=== PATIENT | male | born 1950 | race Caucasian/White ===

== ENCOUNTER 2016-08-15 10:42 | Outpatient (CLI) | payer MEDICARE, OTHER | END 2016-08-15 10:43 | disposition home or self-care (01) | DX: E78.00 Pure hypercholesterolemia, unspecified (principal); E53.8 Deficiency of other specified B group vitamins; Z51.81 Encounter for therapeutic drug level monitoring; E11.9 Type 2 diabetes mellitus without complications; Z12.5 Encounter for screening for malignant neoplasm of prostate; R68.82 Decreased libido | CPT/HCPCS: 36415; 80053; 80061; 82607; 83036; 84403; G0103 ==

== ENCOUNTER 2016-10-10 12:30 | Outpatient (CLI) | payer MEDICARE, OTHER | END 2016-10-10 12:31 | disposition home or self-care (01) | DX: M51.16 Intervertebral disc disorders with radiculopathy, lumbar region (principal); M47.896 Other spondylosis, lumbar region ==

== ENCOUNTER 2016-11-20 06:51 | Outpatient (CLI) | payer MEDICARE, OTHER ==
[2016-11-20 13:26] LABS: ALBUMIN/GLOBULIN RATIO 1.3 (1.0-2.2); BILIRUBIN,TOTAL 1.1 mg/dL (0.2-1.0); BUN - BLOOD UREA NITROGEN 12 mg/dL (6-20); CALCIUM 9.3 mg/dL (8.5-10.3); CARBON DIOXIDE - CO2 27 mmol/L (21-32); CHLORIDE 101 mmol/L (101-111); CHOL/HDL RATIO 3.9 (<5.0); CHOLESTEROL 213 mg/dL; CREATININE 0.7 mg/dL (0.6-1.2); GFR - MDRD 112 (>89); GLUCOSE 132 mg/dL (70-100); HDL CHOLESTEROL 54 mg/dL; LDL/HDL RATIO 2.5 (<3.6); SODIUM 137 mmol/L (135-145); TOTAL PROTEIN 7.2 g/dL (6.7-8.2); TRIGLYCERIDES 110 mg/dL; VLDL CHOLESTEROL 22 mg/dL
[2016-11-20 13:49] LABS: HEMOGLOBIN A1C 0.77 g/dL
== END 2016-11-20 06:52 | disposition home or self-care (01) ==
LOC: LAB.WCP 06:51
PROVIDERS: ATTEND Physician Assistant Medical
DX: Z51.81 Encounter for therapeutic drug level monitoring (principal); E11.9 Type 2 diabetes mellitus without complications; E78.00 Pure hypercholesterolemia, unspecified
CPT/HCPCS: 36415; 80053; 80061; 83036; 84443

== ENCOUNTER 2017-05-03 11:09 | Outpatient (CLI) | payer MEDICARE, OTHER ==
[2017-05-03 13:38] LABS: ALBUMIN/GLOBULIN RATIO 1.5 (1.0-2.2); BILIRUBIN,TOTAL 1.1 mg/dL (0.2-1.0); BUN - BLOOD UREA NITROGEN 11 mg/dL (6-20); CALCIUM 9.1 mg/dL (8.5-10.3); CARBON DIOXIDE - CO2 26 mmol/L (21-32); CHLORIDE 103 mmol/L (101-111); CHOL/HDL RATIO 2.2 (<5.0); CHOLESTEROL 121 mg/dL; CREATININE 0.7 mg/dL (0.6-1.2); GFR - MDRD 112 (>89); GLUCOSE 154 mg/dL (70-100); HDL CHOLESTEROL 55 mg/dL; LDL/HDL RATIO 0.9 (<3.6); POTASSIUM 4.5 mmol/L (3.5-5.0); SODIUM 138 mmol/L (135-145); TRIGLYCERIDES 75 mg/dL; VLDL CHOLESTEROL 15 mg/dL
[2017-05-03 14:11] LABS: HEMOGLOBIN A1C 0.92 g/dL
== END 2017-05-03 11:10 | disposition home or self-care (01) ==
LOC: LAB.WCP 11:09
PROVIDERS: ATTEND Physician Assistant Medical
DX: Z51.81 Encounter for therapeutic drug level monitoring (principal); E11.9 Type 2 diabetes mellitus without complications; E78.00 Pure hypercholesterolemia, unspecified; E53.8 Deficiency of other specified B group vitamins
CPT/HCPCS: 36415; 80053; 80061; 82607; 83036

== ENCOUNTER 2017-07-16 09:50 | Outpatient (CLI) | payer MEDICARE, OTHER | END 2017-07-16 09:51 | disposition home or self-care (01) | LOC: LAB.WCP 09:50 | PROVIDERS: ATTEND Physician Assistant | DX: Z12.5 Encounter for screening for malignant neoplasm of prostate (principal); R68.82 Decreased libido | CPT/HCPCS: 36415; 81599; 84402; G0103; 84153 ==

== ENCOUNTER 2017-08-09 10:23 | Outpatient (CLI) | payer MEDICARE, OTHER ==
[2017-08-09 19:01] LABS: BASOPHILS % (AUTO) 0.3 %; EOSINOPHILS # (AUTO) 0.1 10^3/uL (0.0-0.7); LYMPHOCYTES # (AUTO) 0.9 10^3/uL (1.5-3.5); LYMPHOCYTES % (AUTO) 22.2 %; MEAN CORPUSCULAR HEMOGLOBIN 32.2 pg (27.0-31.0); MEAN CORPUSCULAR HGB CONC 34.3 g/dL (32.0-36.0); MEAN CORPUSCULAR VOLUME 93.8 fL (80.0-94.0); MEAN PLATELET VOLUME 9.8 fL (7.4-11.4); MONOCYTES # (AUTO) 0.3 10^3/uL (0.0-1.0); MONOCYTES % (AUTO) 7.1 %; NEUTROPHILS # (AUTO) 2.8 10^3/uL (1.5-6.6); NEUTROPHILS % (AUTO) 68.4 %; PLT - PLATELET COUNT 139 10^3/uL (130-450); RED BLOOD COUNT 4.35 10^6/uL (4.70-6.10); RED CELL DISTRIBUTION WIDTH 14.4 % (12.0-15.0); WHITE BLOOD COUNT 4.2 x10^3/uL (4.8-10.8)
[2017-08-09 19:24] LABS: ALBUMIN 3.9 g/dL (3.2-5.5); ALBUMIN/GLOBULIN RATIO 1.3 (1.0-2.2); ALKALINE PHOSPHATASE 47 IU/L (42-121); ALT ALANINE AMINOTRANSFERASE 25 IU/L (10-60); AST ASPARTATE AMINOTRANSFERASE 28 IU/L (10-42); BILIRUBIN,TOTAL 1.4 mg/dL (0.2-1.0); BUN - BLOOD UREA NITROGEN 14 mg/dL (6-20); CALCIUM 8.8 mg/dL (8.5-10.3); CARBON DIOXIDE - CO2 27 mmol/L (21-32); CHLORIDE 103 mmol/L (101-111); CHOLESTEROL 131 mg/dL; CREATININE 0.6 mg/dL (0.6-1.2); GFR - MDRD 134 (>89); GLUCOSE 125 mg/dL (70-100); HDL CHOLESTEROL 65 mg/dL; LDL CHOLESTEROL,CALCULATED 58 mg/dL; LDL/HDL RATIO 0.9 (<3.6); SODIUM 137 mmol/L (135-145); TOTAL PROTEIN 6.8 g/dL (6.7-8.2); VLDL CHOLESTEROL 8 mg/dL
[2017-08-09 19:35] LABS: HB2 TOTAL 15.7 g/dL; HEMOGLOBIN A1C 0.79 g/dL; HEMOGLOBIN A1C % 6.8 % (4.6-6.2)
== END 2017-08-09 10:24 | disposition home or self-care (01) ==
LOC: LAB.WCP 10:23
PROVIDERS: ATTEND Physician Assistant Medical
DX: E11.9 Type 2 diabetes mellitus without complications (principal); E53.8 Deficiency of other specified B group vitamins; E78.00 Pure hypercholesterolemia, unspecified; R68.82 Decreased libido; Z51.81 Encounter for therapeutic drug level monitoring; Z79.899 Other long term (current) drug therapy
CPT/HCPCS: 36415; 80053; 80061; 81599; 83036; 83721; 84402; 84403; 84443; 85025

== ENCOUNTER 2017-10-05 12:38 | Emergency (ER) | payer MEDICARE, OTHER ==
[2017-10-05 12:48] VITALS: BP 163/71
--- NOTE | 2017-10-05 14:21 | ED Physician Documentation ---
PD HPI ABD PAIN - Stated complaint Stated Complaint: LT SIDE PX - Chief complaint Chief Complaint: Abd Pain - History obtained from History obtained from: Patient, Family - History of Present Illness Timing - onset: How many weeks ago (5-6) Timing - duration: Weeks (5-6) Timing - details: Abrupt onset, Still present, Waxing and waning Quality: Sharp, Pain Location: LLQ Radiation: Left flank, Right flank Improved by: Laying still Worsened by: Moving, Position, Palpation Associated symptoms: Other (cough) Similar symptoms before: Diagnosis (diverticulitis) Recently seen: Clinic - Additional information Additional information: Has a cough for the past 2 months. He has had a sensation of something caught in his throat and he has not had choking. He has not had shortness of breath. He has had a hacking cough his states that this cough is persistent and significant and has not resolved. He has had cough previously is resolved in the usual 2-3 weeks. He has been on a Z-Fransisco which improved but did not resolve the cough. He is now concerned about a pain that he has had in his left lower abdomen this pain is worse with coughing it is worse with moving around and with palpation. He has not had fever he has not had diarrhea or constipation. He does have some pain in his flanks bilaterally. Review of Systems Constitutional: denies: Fever Eyes: denies: Decreased vision Ears: denies: Ear pain Nose: reports: Congestion. denies: Rhinorrhea / runny nose Throat: denies: Sore throat Cardiac: denies: Chest pain / pressure, Palpitations Respiratory: reports: Cough. denies: Dyspnea GI: denies: Abdominal Pain, Nausea, Vomiting : denies: Dysuria, Frequency Skin: denies: Rash Musculoskeletal: reports: Back pain. denies: Neck pain, Extremity pain Neurologic: denies: Generalized weakness, Focal weakness, Numbness PD PAST MEDICAL HISTORY - Past Medical History Past Medical History: Yes Cardiovascular: Deep vein thrombosis Respiratory: None Neuro: Peripheral neuropathy, Other Endocrine/Autoimmune: Type 2 diabetes GI: Diverticulitis : Kidney stones HEENT: None Psych: Depression Musculoskeletal: None Derm: None Other Past Medical History: DVT leading to saddle embo;ism 4 years ago - Past Surgical History Past Surgical History: Yes Ortho: Other - Present Medications Home Medications: Ambulatory Orders Medication Instructions Recorded Confirmed DULoxetine [Cymbalta] 1 cap PO DAILY 10/05/17 10/05/17 Glipizide 1 tab PO BID 10/05/17 10/05/17 Lisinopril 1 tab PO DAILY 10/05/17 10/05/17 Omeprazole [PriLOSEC] 1 cap PO DAILY 10/05/17 10/05/17 Tamsulosin [Flomax] 1 cap PO DAILY 10/05/17 10/05/17 metFORMIN [Glucophage] 1 tab PO TID 10/05/17 10/05/17 - Allergies Allergies/Adverse Reactions: Allergies Allergy/AdvReac Type Severity Reaction Status Date / Time hydromorphone [From Dilaudid] AdvReac Unknown Verified 10/05/17 12:48 - Social History Does the pt smoke?: No Smoking Status: Never smoker Does the pt drink ETOH?: Yes Does the pt have substance abuse?: No - Immunizations Immunizations are current?: Yes - POLST Patient has POLST: No PD ED PE NORMAL - Vitals Vital signs reviewed: Yes (hypertensive ) - General General: Alert and oriented X 3, No acute distress, Well developed/nourished - HEENT HEENT: Atraumatic, PERRL, EOMI, Ears normal, Moist mucous membranes, Pharynx benign, Dentition benign - Neck Neck: Supple, no meningeal sign - Cardiac Cardiac: RRR, No murmur - Respiratory Respiratory: No respiratory distress, Clear bilaterally - Abdomen Abdomen: Soft, No organomegaly, Other (mild tenderness to the left lower quadrant to one specific area. ) - Back Back: No CVA TTP, No spinal TTP, Other (There is some paraspinous muscle tenderness to the lumbar spine area over the L3 area. ) - Derm Derm: Normal color, Warm and dry, No rash - Extremities Extremities: No deformity, No edema - Neuro Neuro: Alert and oriented X 3, curator 2-12 intact, No motor deficit, No sensory deficit, Normal speech Eye Opening: Spontaneous Motor: Obeys Commands Verbal: Oriented GCS Score: 15 - Psych Psych: Normal mood, Normal affect Results - Vitals Vitals: Vital Signs - 24 hr 10/05/17 12:41 Temperature 36.4 C L Heart Rate 70 Respiratory 15 Rate Blood Pressure 163/71 H O2 Saturation 97 - Labs Labs: Laboratory Tests 10/05/17 10/05/1718 14:11 15:16 15:16 WBC 4.2 L RBC 4.10 L Hgb 13.0 L Hct 37.7 L MCV 91.9 MCH 31.8 H MCHC 34.6 RDW 14.0 Plt Count 123 L MPV 7.9 Neut # 3.1 Lymph # 0.6 L [place] # 0.4 Eos # 0.1 Baso # 0.0 Absolute Nucleated RBC 0.00 Nucleated RBC % 0.0 Sodium 137 Potassium 3.9 Chloride 102 Carbon Dioxide 27 Anion Gap 8.0 BUN 11 Creatinine 0.6 Estimated GFR (MDRD) 134 Glucose 241 H Calcium 8.7 Total Bilirubin 1.1 H AST 31 ALT 21 Alkaline Phosphatase 61 Total Protein 6.4 L Albumin 3.5 Globulin 2.9 Albumin/Globulin Ratio 1.2 Lipase 17 L Urine Color YELLOW Urine Clarity CLEAR Urine pH 6.5 Ur Specific [place] 1.010 Urine Protein NEGATIVE Urine Glucose (UA) NEGATIVE Urine Ketones NEGATIVE Urine Occult Blood NEGATIVE Urine Nitrite NEGATIVE Urine Bilirubin NEGATIVE Urine Urobilinogen 0.2 (NORMAL) Ur Leukocyte Esterase NEGATIVE Ur Microscopic Review NOT INDICATED Urine Culture Comments NOT INDICATED - Rads (name of study) CT abdomen and pelvis without Radiology: Prelim report reviewed (Impression: 1. Marked lymphadenopathy; differential considerations include lymphoma, metastatic disease, and other possibilities. 2. Small left renal nonobstructing stone measuring 4 mm.), EMP read indepedently, See rad report PD MEDICAL DECISION MAKING - ED course Complexity details: reviewed old records, reviewed results, re-evaluated patient , considered differential, d/w patient, d/w family ED course: 67 y/o male with a cough for more than 8 weeks without resolution has now developed a pain in his abdomen. He has pain in his back as well. He was concerned about diverticulitis or a kidney stone and the CT revealed retroperitoneal para aortic lymph nodes in chains consistent with lymphoma or malignancy. He does report that he has sensitivity to alcohol with his pain being specifically worse with alcohol exposure consistent with the diagnosis of Hodgkin's lymphoma. He has flank pain typical of Hodgkin's with abdominal involvement. He does have a palpable node in the left neck but this is not particularly large or unusual in the area. He does have a primary for followup. He is reassured with a good treatment record for Hodgkin's. Departure - Departure Disposition: 01 Home, Self Care Clinical Impression: Hodgkin lymphoma Qualifiers: Hodgkin lymphoma type: unspecified type Lymphoma site: intra-abdominal nodes Qualified Code(s): C81.93 - Hodgkin lymphoma, unspecified, intra-abdominal lymph nodes Condition: Stable Instructions: Hodgkin Disease Dc Follow-Up: [place] MD [Primary Care Provider] - Discharge Date/Time: 10/05/17 15:50
--- NOTE | 2017-10-05 14:32 | CT Preliminary Report ---
Exam: CT ABDOMEN/PELVIS W/O IMPRESSION: 1. Marked lymphadenopathy; differential considerations include lymphoma, metastatic disease, and othe r possibilities. 2. Small left renal nonobstructing stone measuring 4 mm. [facility] SITE ID: [id number]
--- NOTE | 2017-10-05 14:32 | CT Report ---
EXAM: CT ABDOMEN AND PELVIS EXAM DATE: 10/05/2017 01:49 PM. CLINICAL HISTORY: LLQ pain bilateral flank pain. COMPARISONS: None. TECHNIQUE: Routine helical CT imaging was performed through the abdomen and pelvis. IV contrast: None . Enteric contrast: No. Reconstructions: Coronal and sagittal. In accordance with CT protocol optimization, one or more of the following dose reduction techniques w ere utilized for this exam: automated exposure control, adjustment of mA and/or KV based on patient s ize, or use of iterative reconstructive technique. FINDINGS: Lung Bases: Unremarkable. Liver: Normal. No masses. Gallbladder/Bile Ducts: Unremarkable. Spleen: Normal. Small accessory spleen. Pancreas: Normal. Adrenal Glands: Normal. Kidneys: Nonobstructing left renal stone measuring 4 mm. Mild bilateral perinephric fat stranding. Ot herwise unremarkable. No ureteral stone or hydronephrosis. 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 Minimal prominence of m esenteric nodes. Small amounts of free fluid tracking along tissue planes. No free air or bowel dilat ion. The appendix is well visualized and normal. Pelvic Organs: Normal. The bladder and visualized pelvic organs are within normal limits. Vasculature: No aneurysms or other significant abnormality. Bones: No significant abnormality. Other: None. IMPRESSION: 1. Marked lymphadenopathy; differential considerations include lymphoma, metastatic disease, and othe r possibilities. 2. Small left renal nonobstructing stone measuring 4 mm. [facility] Referring Provider Line: [phone] SITE ID: [id number]
[2017-10-05 14:38] LABS: BILIRUBIN,URINE NEGATIVE (NEGATIVE); GLUCOSE, URINE (UA) NEGATIVE (NEGATIVE); KETONES,URINE (UA) NEGATIVE (NEGATIVE); LEUKOCYTE ESTERASE, URINE NEGATIVE (NEGATIVE); NITRITE,URINE NEGATIVE (NEGATIVE); OCCULT BLOOD,URINE NEGATIVE (NEGATIVE); PH,URINE 6.5 PH (5.0-7.5); PROTEIN,URINE NEGATIVE (NEGATIVE); UROBILINOGEN,URINE 0.2 (NORMAL) E.U./dL (NORMAL)
[2017-10-05 14:39] LABS: CLARITY,URINE CLEAR (CLEAR)
[2017-10-05 15:23] LABS: BASOPHILS % (AUTO) 0.5 %; EOSINOPHILS # (AUTO) 0.1 10^3/uL (0.0-0.7); EOSINOPHILS % (AUTO) 2.1 %; LYMPHOCYTES # (AUTO) 0.6 10^3/uL (1.5-3.5); LYMPHOCYTES % (AUTO) 14.8 %; MEAN CORPUSCULAR HEMOGLOBIN 31.8 pg (27.0-31.0); MEAN CORPUSCULAR HGB CONC 34.6 g/dL (32.0-36.0); MEAN CORPUSCULAR VOLUME 91.9 fL (80.0-94.0); MEAN PLATELET VOLUME 7.9 fL (7.4-11.4); MONOCYTES # (AUTO) 0.4 10^3/uL (0.0-1.0); MONOCYTES % (AUTO) 10.2 %; NEUTROPHILS # (AUTO) 3.1 10^3/uL (1.5-6.6); NEUTROPHILS % (AUTO) 72.4 %; PLT - PLATELET COUNT 123 10^3/uL (130-450); WHITE BLOOD COUNT 4.2 x10^3/uL (4.8-10.8)
[2017-10-05 15:35] LABS: ALBUMIN 3.5 g/dL (3.2-5.5); ALBUMIN/GLOBULIN RATIO 1.2 (1.0-2.2); BILIRUBIN,TOTAL 1.1 mg/dL (0.2-1.0); CALCIUM 8.7 mg/dL (8.5-10.3); CREATININE 0.6 mg/dL (0.6-1.2); TOTAL PROTEIN 6.4 g/dL (6.7-8.2)
== END 2017-10-05 15:50 | disposition home or self-care (01) ==
LOC: ED 12:38
DX: C81.93 Hodgkin lymphoma, unspecified, intra-abdominal lymph nodes (principal); E11.42 Type 2 diabetes mellitus with diabetic polyneuropathy; Z79.84 Long term (current) use of oral hypoglycemic drugs; Z86.718 Personal history of other venous thrombosis and embolism; Z87.442 Personal history of urinary calculi
CPT/HCPCS: 36415; 74176; 80053; 81001; 81003; 83690; 85025; 87086; 99283; 99284

== ENCOUNTER 2017-10-18 08:00 | Outpatient (CLI) | payer MEDICARE, OTHER ==
[2017-10-18 13:42] LABS: ALBUMIN 3.3 g/dL (3.2-5.5); ALBUMIN/GLOBULIN RATIO 0.8 (1.0-2.2); CALCIUM 9.1 mg/dL (8.5-10.3); CREATININE 0.7 mg/dL (0.6-1.2); PHOSPHORUS 4.2 mg/dL (2.5-4.6); TOTAL PROTEIN 7.5 g/dL (6.7-8.2); URIC ACID 5.1 mg/dL (2.6-7.2)
[2017-10-18 14:13] LABS: BASOPHILS % (AUTO) 0.3 %; EOSINOPHILS % (AUTO) 0.4 %; HGB - HEMOGLOBIN 13.2 g/dL (14.0-18.0); LYMPHOCYTES # (AUTO) 0.8 10^3/uL (1.5-3.5); LYMPHOCYTES % (AUTO) 8.6 %; MEAN CORPUSCULAR HGB CONC 34.3 g/dL (32.0-36.0); MEAN CORPUSCULAR VOLUME 90.3 fL (80.0-94.0); MEAN PLATELET VOLUME 7.4 fL (7.4-11.4); MONOCYTES # (AUTO) 0.7 10^3/uL (0.0-1.0); MONOCYTES % (AUTO) 7.5 %; NEUTROPHILS # (AUTO) 7.3 10^3/uL (1.5-6.6); NEUTROPHILS % (AUTO) 83.2 %; PLT - PLATELET COUNT 377 10^3/uL (130-450); RED BLOOD COUNT 4.25 10^6/uL (4.70-6.10); RED CELL DISTRIBUTION WIDTH 13.7 % (12.0-15.0); WHITE BLOOD COUNT 8.8 x10^3/uL (4.8-10.8)
== END 2017-10-18 08:01 | disposition home or self-care (01) ==
LOC: LAB.WCP 08:00
PROVIDERS: ATTEND Physician Assistant Medical
DX: C85.90 Non-Hodgkin lymphoma, unspecified, unspecified site (principal)
CPT/HCPCS: 36415; 80053; 83615; 83735; 84100; 84550; 85025

== ENCOUNTER 2017-10-30 20:09 | Emergency (ER) | payer MEDICARE, OTHER ==
[2017-10-30] MEDS ORDERED: IOPAMIDOL-300 100 ML VIAL IVP ONE ×2 (20:10→22:06)
[2017-10-30] MEDS ORDERED: SODIUM CHLORIDE 0.9% 1,000 ML IV ONE (20:30)
[2017-10-30] MEDS ORDERED: MORPHINE 2 MG/ML SYRINGE IVP STA ×3 (20:30→23:57)
[2017-10-30] MEDS ORDERED: ONDANSETRON 4 MG/2 ML VIAL IVP STA (20:30)
--- NOTE | 2017-10-30 20:32 | ED Physician Documentation ---
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 He had a port placed 2 days ago and has not yet started chemotherapy, there is some delay because they need another biopsy and his daughter's wedding is this upcoming weekend but his abdominal pain especially in the right upper quadrant with also migratory chest and belly pains elsewhere has been much worse today and intolerable despite taking oxycodone. He has been moving his bowels. He is nauseous. There is no fever.) Review of Systems Ten Systems: 10 systems reviewed and negative Constitutional: reports: Fatigue. denies: Fever, Chills Cardiac: reports: Chest pain / pressure Respiratory: reports: Dyspnea. denies: Cough GI: reports: Abdominal Pain, Nausea, Vomiting. denies: Constipation, Diarrhea PD PAST MEDICAL HISTORY - Past Medical History Cardiovascular: Deep vein thrombosis Respiratory: None Endocrine/Autoimmune: Type 2 diabetes GI: Diverticulitis : Kidney stones HEENT: None Psych: Depression Musculoskeletal: None Derm: None - Past Surgical History Past Surgical History: Yes Ortho: Other - Present Medications Home Medications: Ambulatory Orders Medication Instructions Recorded Confirmed DULoxetine [Cymbalta] 1 cap PO DAILY 10/05/17 10/05/17 Glipizide 1 tab PO BID 10/05/17 10/05/17 Lisinopril 1 tab PO DAILY 10/05/17 10/05/17 Omeprazole [PriLOSEC] 1 cap PO DAILY 10/05/17 10/05/17 Tamsulosin [Flomax] 1 cap PO DAILY 10/05/17 10/05/17 metFORMIN [Glucophage] 1 tab PO TID 10/05/17 10/05/17 - Allergies Allergies/Adverse Reactions: Allergies Allergy/AdvReac Type Severity Reaction Status Date / Time hydromorphone [From Dilaudid] AdvReac Unknown Verified 10/30/17 20:23 - Social History Does the pt smoke?: No Smoking Status: Never smoker Does the pt drink ETOH?: Yes Does the pt have substance abuse?: No - Family History Family history: reports: Non contributory - Immunizations Immunizations are current?: Yes - POLST Patient has POLST: No PD ED PE NORMAL - Vitals Vital signs reviewed: Yes - General General: Alert and oriented X 3, No acute distress - HEENT HEENT: PERRL, EOMI - Neck Neck: Supple, no meningeal sign, No bony TTP - Cardiac Cardiac: RRR, No murmur - Respiratory Respiratory: Other (Significant a diminished at the right base) - Abdomen Abdomen: Other (Diffuse tense tenderness without guarding or rebound, most market in the right upper quadrant.) - Back Back: No CVA TTP, No spinal TTP - Derm Derm: Normal color, Warm and dry - Extremities Extremities: No edema, No calf tenderness / cord - Neuro Neuro: Alert and oriented X 3, Normal speech - Psych Psych: Normal mood, Normal affect Results - Vitals Vitals: Vital Signs - 24 hr 10/30/17 10/30/17 10/30/17 20:15 21:05 22:35 Temperature 35.9 C L Heart Rate 77 62 65 Respiratory 17 16 16 Rate Blood Pressure 190/94 H 181/82 H 148/65 H O2 Saturation 99 96 100 Oxygen O2 Source Room air - Labs Labs: Laboratory Tests 10/30/17 10/30/17 10/30/17 20:50 20:50 20:50 WBC 10.2 RBC 3.91 L Hgb 11.9 L Hct 34.9 L MCV 89.3 MCH 30.3 MCHC 33.9 RDW 14.0 Plt Count 300 MPV 7.2 L Neut # 8.7 H Lymph # 0.7 L [place] # 0.7 Eos # 0.1 Baso # 0.0 Absolute Nucleated RBC 0.01 Nucleated RBC % 0.1 PT 12.8 H INR 1.1 Sodium 135 Potassium 4.1 Chloride 99 L Carbon Dioxide 27 Anion Gap 9.0 BUN 13 Creatinine 0.5 L Estimated GFR (MDRD) 165 Glucose 157 H Calcium 9.0 Total Bilirubin 0.8 AST 24 ALT 25 Alkaline Phosphatase 79 Total Protein 6.7 Albumin 3.2 Globulin 3.5 Albumin/Globulin Ratio 0.9 L Lipase 28 - Rads (name of study) CT Chest PE Radiology: EMP read contemporaneously (No PE or vascular issue, there are enlarged mediastinal and hilar lymph nodes and a small trace left effusion.) CT A/P Radiology: EMP read contemporaneously (Enlarged mesenteric and retroperitoneal lymph nodes without other acute abnormalities except for mild retroperitoneal fat stranding and mild pericystic fat stranding. There is mass-effect on the IVC without evidence of vascular occlusion.) PD MEDICAL DECISION MAKING - ED course ED course: 67-year-old gentleman with intractable pain from his non-Hodgkin's lymphoma. The plan prior to arrival per his oncologist was to stabilize and make sure there was no contraindication to transport and then send him to [facility]. His scans were without acute surgical urgency and his labs were relatively unremarkable. He was treated with divided doses of morphine without ill effect and with improvement in his pain. I spoke with Dr. White at the [facility] at 11:55 PM and he was accepted in transfer, cobras completed. The patient wanted to go private vehicle and pros and cons of this approach were discussed with him and they still want to go private vehicle. Departure - Departure Disposition: 02 Transfer Acute Care Hosp Clinical Impression: Abdominal pain Qualifiers: Abdominal location: generalized Qualified Code(s): R10.84 - Generalized abdominal pain Dyspnea Qualifiers: Dyspnea type: dyspnea on exertion Qualified Code(s): R06.09 - Other forms of dyspnea Non-Hodgkin lymphoma Qualifiers: Follicular lymphoma grade: grade IIIa Lymphoma site: intra-abdominal nodes Condition: Stable
[2017-10-30] MEDS ORDERED: IOPAMIDOL-300 100 ML VIAL ONE (20:54)
[2017-10-30 20:59] LABS: BASOPHILS % (AUTO) 0.5 %; EOSINOPHILS # (AUTO) 0.1 10^3/uL (0.0-0.7); EOSINOPHILS % (AUTO) 0.5 %; HGB - HEMOGLOBIN 11.9 g/dL (14.0-18.0); LYMPHOCYTES # (AUTO) 0.7 10^3/uL (1.5-3.5); MEAN CORPUSCULAR HEMOGLOBIN 30.3 pg (27.0-31.0); MEAN CORPUSCULAR HGB CONC 33.9 g/dL (32.0-36.0); MEAN CORPUSCULAR VOLUME 89.3 fL (80.0-94.0); MEAN PLATELET VOLUME 7.2 fL (7.4-11.4); MONOCYTES # (AUTO) 0.7 10^3/uL (0.0-1.0); MONOCYTES % (AUTO) 6.6 %; NEUTROPHILS # (AUTO) 8.7 10^3/uL (1.5-6.6); NEUTROPHILS % (AUTO) 85.4 %; PLT - PLATELET COUNT 300 10^3/uL (130-450); RED BLOOD COUNT 3.91 10^6/uL (4.70-6.10); WHITE BLOOD COUNT 10.2 x10^3/uL (4.8-10.8)
[2017-10-30 21:05] LABS: INR 1.1 (0.8-1.2); PT - PROTHROMBIN TIME 12.8 secs (9.9-12.6)
[2017-10-30 21:10] LABS: ALBUMIN 3.2 g/dL (3.2-5.5); ALBUMIN/GLOBULIN RATIO 0.9 (1.0-2.2); BILIRUBIN,TOTAL 0.8 mg/dL (0.2-1.0); CREATININE 0.5 mg/dL (0.6-1.2); TOTAL PROTEIN 6.7 g/dL (6.7-8.2)
--- NOTE | 2017-10-30 22:43 | CT Report ---
EXAM: CT ANGIOGRAM CHEST EXAM DATE: 10/30/2017 10:09 PM. CLINICAL HISTORY: Dyspnea. COMPARISON: None. TECHNIQUE: Routine helical imaging was performed through the chest in the pulmonary arterial phase. I V Contrast: 80ML ISOVUE 300. Reconstructions: Coronal 3-D MIP reconstructions.Sagittal and coronal. In accordance with CT protocol optimization, one or more of the following dose reduction techniques w ere utilized for this exam: automated exposure control, adjustment of mA and/or KV based on patient s ize, or use of iterative reconstructive technique. FINDINGS: Pulmonary Arteries: Diagnostic quality: Adequate through the segmental arteries. No evidence for acute or chronic pulmona ry emboli. Lungs/Pleura: There is trace left pleural effusion. No evidence of lobar infiltrate. No central airwa y abnormalities. No pneumothorax. Mediastinum: The heart size is within normal limits. There are enlarged mediastinal and hilar lymph n odes. Index examples include right paratracheal 2.6 x 1.0 cm image 43 series 6, subcarinal 2.1 x 1.5 cm image 66, and right hilar 1.3 x 1.0 cm image 63. Thoracic Aorta: Unremarkable. Upper Abdomen: Findings are detailed separately. Other: None. IMPRESSION: 1. No evidence of acute pulmonary embolism. 2. No thoracic aortic dissection. 3. Trace left effusion. No evidence of focal infiltrate. 4. There are enlarged mediastinal and hilar lymph nodes. [facility] Referring Provider Line: [phone] SITE ID: [id number]
--- NOTE | 2017-10-30 22:49 | CT Report ---
EXAM: CT ABDOMEN AND PELVIS EXAM DATE: 10/30/2017 10:09 PM. CLINICAL HISTORY: Dyspnea, known NHL. COMPARISONS: None. TECHNIQUE: Routine helical CT imaging was performed through the abdomen and pelvis. IV contrast: 80 c c Isovue 300. Enteric contrast: No. Reconstructions: Coronal and sagittal. In accordance with CT protocol optimization, one or more of the following dose reduction techniques w ere utilized for this exam: automated exposure control, adjustment of mA and/or KV based on patient s ize, or use of iterative reconstructive technique. FINDINGS: Lung Bases: Findings are detailed separately. Liver: Normal. No masses. Gallbladder/Bile Ducts: Unremarkable. Spleen: Normal. Pancreas: Normal. Adrenal Glands: Normal. Kidneys: Normal. No masses or hydronephrosis. Peritoneal Cavity/Bowel: No dilated or thick-walled bowel is seen. There is retroperitoneal fat stran ding which probably related to the extensive adenopathy. There is no evidence of appendicitis. There are enlarged mesenteric and retroperitoneal lymph nodes. Index examples include portacaval 3.9 x 2.4 cm image 27 series 8, right paramedian periaortic 2.6 x 3.8 cm image 37, and right common iliac 3.2 x 2.3 cm image 58. Pelvic Organs: There is bilateral neural canal fat stranding. There is some mild pericystic fat stran ding. No significant urinary bladder wall thickening. Vasculature: There is mass effect exerted on the IVC secondary to the enlarged retroperitoneal lymph nodes. No acute aortic abnormalities are seen. The mesenteric branch vessels are patent. Bones: No significant abnormality. Other: None. IMPRESSION: 1. There are enlarged mesenteric and retroperitoneal lymph nodes. 2. Solid abdominal organs demonstrate no acute abnormalities. 3. No acute gastrointestinal tract findings. 4. There is retroperitoneal fat stranding which is probably related to the patient's adenopathy. 5. There is mild pericystic fat stranding. This could represent cystitis. No significant urinary blad thea wall thickening is seen. 6. There is mass effect exerted on the IVC. There is no evidence of vascular occlusion. [facility] Referring Provider Line: [phone] SITE ID: [id number]
[2017-10-31] MEDS ORDERED: MORPHINE 2 MG/ML SYRINGE IVP STA (02:32)
[2017-10-31 03:48] VITALS: BP 169/63
== END 2017-10-31 03:50 | disposition short-term general hospital (02) ==
LOC: ED 20:09
DX: R10.84 Generalized abdominal pain (principal); R06.09 Other forms of dyspnea; C85.93 Non-Hodgkin lymphoma, unspecified, intra-abdominal lymph nodes; E11.9 Type 2 diabetes mellitus without complications
CPT/HCPCS: 36415; 71275; 74177; 80053; 83605; 83690; 85025; 85610; 96361; 96374; 96375; 96376; 99284; 99285; J2270; Q9967

== ENCOUNTER 2017-11-08 08:00 | Outpatient (CLI) | payer MEDICARE, OTHER ==
[2017-11-08 13:09] LABS: BASOPHILS % (AUTO) 0.6 %; HGB - HEMOGLOBIN 10.2 g/dL (14.0-18.0); LYMPHOCYTES # (AUTO) 0.2 10^3/uL (1.5-3.5); LYMPHOCYTES % (AUTO) 62.7 %; MEAN CORPUSCULAR HEMOGLOBIN 30.5 pg (27.0-31.0); MEAN CORPUSCULAR HGB CONC 34.8 g/dL (32.0-36.0); MEAN CORPUSCULAR VOLUME 87.8 fL (80.0-94.0); MEAN PLATELET VOLUME 8.3 fL (7.4-11.4); MONOCYTES # (AUTO) 0.1 10^3/uL (0.0-1.0); MONOCYTES % (AUTO) 22.8 %; NEUTROPHILS % (AUTO) 9.9 %; PLT - PLATELET COUNT 106 10^3/uL (130-450); RED BLOOD COUNT 3.35 10^6/uL (4.70-6.10); RED CELL DISTRIBUTION WIDTH 13.8 % (12.0-15.0)
[2017-11-08 13:41] LABS: ALBUMIN 2.7 g/dL (3.2-5.5); ALBUMIN/GLOBULIN RATIO 0.8 (1.0-2.2); BILIRUBIN,TOTAL 1.1 mg/dL (0.2-1.0); CALCIUM 8.6 mg/dL (8.5-10.3); CREATININE 0.7 mg/dL (0.6-1.2)
[2017-11-08 14:12] LABS: WHITE BLOOD COUNT 0.3 x10^3/uL (4.8-10.8)
[2017-11-08 14:19] LABS: PLATELET MORPHOLOGY RARE GIANT PLATELETS (NORMAL); RBC MORPHOLOGY (MULTIPLE) 2+ ANISOCYTOSIS (NORMAL)
[2017-11-08 14:20] LABS: DIFFERENTIAL COMMENT MANUAL=AUTO DIFF
== END 2017-11-08 08:01 | disposition home or self-care (01) ==
LOC: LAB.WCP 08:00
DX: C85.93 Non-Hodgkin lymphoma, unspecified, intra-abdominal lymph nodes (principal)
CPT/HCPCS: 36415; 80053; 85025

== ENCOUNTER 2017-11-29 09:46 | Outpatient (CLI) | payer MEDICARE, OTHER ==
[2017-11-29 12:57] LABS: BASOPHILS # (AUTO) 0.1 10^3/uL (0.0-0.1); BASOPHILS % (AUTO) 3.4 %; EOSINOPHILS # (AUTO) 0.1 10^3/uL (0.0-0.7); EOSINOPHILS % (AUTO) 2.8 %; HGB - HEMOGLOBIN 9.9 g/dL (14.0-18.0); LYMPHOCYTES # (AUTO) 1.5 10^3/uL (1.5-3.5); LYMPHOCYTES % (AUTO) 64.3 %; MEAN CORPUSCULAR HEMOGLOBIN 30.7 pg (27.0-31.0); MEAN CORPUSCULAR HGB CONC 34.3 g/dL (32.0-36.0); MEAN CORPUSCULAR VOLUME 89.8 fL (80.0-94.0); MEAN PLATELET VOLUME 9.1 fL (7.4-11.4); MONOCYTES # (AUTO) 0.5 10^3/uL (0.0-1.0); MONOCYTES % (AUTO) 21.9 %; NEUTROPHILS % (AUTO) 7.6 %; PLT - PLATELET COUNT 129 10^3/uL (130-450); RED BLOOD COUNT 3.22 10^6/uL (4.70-6.10); RED CELL DISTRIBUTION WIDTH 14.6 % (12.0-15.0)
[2017-11-29 13:40] LABS: NEUTROPHILS # (AUTO) 0.2 10^3/uL (1.5-6.6)
[2017-11-29 13:41] LABS: DIFFERENTIAL COMMENT MANUAL=AUTO DIFF
[2017-11-29 13:45] LABS: CHOL/HDL RATIO 1.8 (<5.0); CHOLESTEROL 109 mg/dL; HDL CHOLESTEROL 62 mg/dL; LDL CHOLESTEROL,CALCULATED 34 mg/dL; LDL/HDL RATIO 0.5 (<3.6); VLDL CHOLESTEROL 13 mg/dL
[2017-11-29 13:49] LABS: THYROID STIMULATING HORMONE 2.63 uIU/mL (0.34-5.60)
[2017-11-29 14:02] LABS: ALBUMIN 2.9 g/dL (3.2-5.5); ALBUMIN/GLOBULIN RATIO 0.9 (1.0-2.2); CALCIUM 8.7 mg/dL (8.5-10.3); CREATININE 0.5 mg/dL (0.6-1.2); TOTAL PROTEIN 6.2 g/dL (6.7-8.2)
== END 2017-11-29 09:47 | disposition home or self-care (01) ==
LOC: LAB.WCP 09:46
PROVIDERS: ATTEND Family Medicine
DX: E78.00 Pure hypercholesterolemia, unspecified (principal); C85.93 Non-Hodgkin lymphoma, unspecified, intra-abdominal lymph nodes; E53.8 Deficiency of other specified B group vitamins; E11.9 Type 2 diabetes mellitus without complications
CPT/HCPCS: 36415; 80053; 80061; 82607; 83721; 84443; 85025